=== PATIENT | male | born 1985 | race Caucasian/White ===

== ENCOUNTER 2016-07-27 21:49 | Emergency (ER) | payer MEDICAID ==
[2016-07-27 22:25] VITALS: BP 143/94
--- NOTE | 2016-07-27 22:55 | EDM.PDOC ---
ED HISTORY OF PRESENT ILLNESS - General Chief Complaint: Respiratory Problem Stated Complaint: UPPER RESPIRATORY Time Seen by Provider: 07/27/16 22:33 Source: Reports: Patient History Limitations: Reports: No limitations - History of Present Illness INITIAL COMMENTS - FREE TEXT/NARRATIVE: sinus infection;this is a 31 year old male present to ER with concerns of sinus infection, now going into to chest. similar to previous sinus infection. denies any fever, chills, nausea, vomiting or diarrhea. Timing/Duration: Reports: Day(s): Severity: moderate Location, General: Reports: head, chest Quality: Reports: Same as previous episode Improves with: Reports: None Worsens with: Reports: None Associated Symptoms: Reports: cough - Related Data Allergies/ADRs: Allergies Allergy/AdvReac Type Severity Reaction Status Date / Time No Known Allergies Allergy Verified 07/27/16 22:32 Home Meds: Home Meds NK [No Known Home Meds] 09/19/15 [History] Past Medical History - Past Health History Medical/Surgical History: Denies Medical/Surgical History Respiratory History: Reports: Asthma Neurological History: Reports: Head trauma Psychiatric History: Reports: Bipolar, Depression - Infectious Disease History Infectious Disease History: Reports: Chicken pox Social & Family History - Tobacco Use Smoking Status *Q: Never Smoker Years of Tobacco use: 15 Packs/Tins Daily: 1 Used Tobacco, but Quit: No Second Hand Smoke Exposure: Yes - Alcohol Use Days Per Week of Alcohol Use: 0 - Recreational Drug Use Recreational Drug Use: No Drug Use in Last 12 Months: Yes Recreational Drug Type: Reports: Marijuana/Hashish Recreational Drug Use Frequency: Daily ED ROS GENERAL - Review of Systems Review Of Systems: See Below Constitutional: Reports: fatigue HEENT: Reports: Nose pain, Sinus problem Respiratory: Reports: Cough Cardiovascular: Reports: No symptoms Endocrine: Reports: no symptoms GI/Abdominal: Reports: No symptoms Musculoskeletal: Reports: no symptoms Skin: Reports: no symptoms Neurological: Reports: No Symptoms Psychiatric: Reports: No symptoms Hematologic/Lymphatic: Reports: no symptoms Immunologic: Reports: no symptoms ED EXAM, GENERAL - Physical Exam Exam: See Below Exam Limited By: No limitations General Appearance: alert, WD/WN, no apparent distress Eye Exam: bilateral eye: normal inspection Ears: normal external exam, normal canal, other (tm with fluids, no redness, bony landmarks present) Ear Exam: bilateral ear: TM dull, TM bulging Nose: nasal tenderness, nasal drainage, other (frontal and maxillary pain and pressure is noted.) Throat/Mouth: Normal lips, Normal teeth, Normal gums, Normal voice, No airway compromise, Inflammation (tonsillar) Head: atraumatic, normocephalic, sinus tenderness Neck: normal inspection, supple, non-tender Respiratory/Chest: no respiratory distress, lungs clear, normal breath sounds, no accessory muscle use, chest non-tender, other (cough present) Cardiovascular: regular rate, rhythm, no edema, no murmur GI/Abdominal: normal bowel sounds, soft, non tender Back Exam: normal inspection, full range of motion Extremities: normal inspection, normal range of motion Neurological: alert, oriented, normal gait Psychiatric: normal affect, normal mood Skin Exam: Warm, Dry, Intact, Normal color, No rash Lymphatic: no adenopathy Course - Vital Signs Last Recorded V/S: Last Vital Signs Temp 35.4 C 07/27/16 22:32 Pulse 71 07/27/16 22:32 Resp 16 07/27/16 22:32 BP 143/94 H 07/27/16 22:32 Pulse Ox 99 07/27/16 22:32 Departure - Departure Time of Disposition: 23:08 Disposition: Home, Self-Care 01 Condition: good Clinical Impression: Cough Sinusitis Qualifiers: Sinusitis location: maxillary Chronicity: acute Recurrence: not specified as recurrent Qualified Code(s): J01.00 - Acute maxillary sinusitis, unspecified Instructions: Cough, Adult, [id number], Sinusitis, Adult Referrals: PCP,None [Primary Care Provider] - Forms: ED Department Discharge Care Plan Goals: sinusitis with cough -zithromax 2 tabs today, then 1 tab daily x 4 days -robitussin ac 10ml every 4 to6 hr as needed for cough -benadryl 25mg every 4 to 6 hours as needed for congestion discussed medications, rest, push fluids, return to clinic or er if not improved or symptoms worsen advised no work or school for 3 days or until well. - Problem List & Annotations (1) Cough SNOMED Code(s): 37046944 Code(s): R05 - COUGH Status: Acute Priority: High Current Visit: Yes (2) Sinusitis SNOMED Code(s): 28613569 Code(s): J32.9 - CHRONIC SINUSITIS, UNSPECIFIED Status: Acute Priority: High Current Visit: Yes Qualifiers: Sinusitis location: maxillary Chronicity: acute Recurrence: not specified as recurrent Qualified Code(s): J01.00 - Acute maxillary sinusitis, unspecified - Problem List Review Problem List Initiated/Reviewed/Updated: Yes - Assessment/Plan Plan: sinusitis with cough -zithromax 2 tabs today, then 1 tab daily x 4 days -robitussin ac 10ml every 4 to6 hr as needed for cough -benadryl 25mg every 4 to 6 hours as needed for congestion discussed medications, rest, push fluids, return to clinic or er if not improved or symptoms worsen advised no work or school for 3 days or until well.
== END 2016-07-27 23:00 | disposition home or self-care (01) ==
LOC: JP.ED 21:49
DX: J01.00 Acute maxillary sinusitis, unspecified (principal); R05 Cough
CPT/HCPCS: 99283

== ENCOUNTER 2019-08-07 21:08 | Emergency (ER) | payer BC, MEDICAID ==
[2019-08-07 21:25] VITALS: BP 131/74; PULSE 65
--- NOTE | 2019-08-07 21:40 | EDM.PDOC ---
ED HPI GENERAL MEDICAL PROBLEM - General Chief Complaint: General Stated Complaint: CHEST PAIN Time Seen by Provider: 08/07/19 21:15 Source of Information: Reports: Patient History Limitations: Reports: No Limitations - History of Present Illness INITIAL COMMENTS - FREE TEXT/NARRATIVE: 34-year-old male with an intermittent left anterior chest discomfort that sometimes radiates into his left arm as numbness and tingling, has been having symptoms for the last couple of months. Yesterday he was very active, lifting some heavy things and today he has been having this sensation intermittently that lasts 30 seconds to a minute. No shortness of breath, although he can feel some pressure pain with a deep breath. No cough or fever. No diaphoresis , nausea or vomiting. He is fairly sedentary right now, is a smoker and has a family history of cardiac disease. Onset: Unknown/Unsure (At least 2 months) Location: Reports: Chest, Upper Extremity, Left Improves with: Reports: None, Other (Really does not seem to be related to activity, he gets his symptoms at night sometimes while resting) Worsens with: Reports: Breathing Associated Symptoms: Reports: Chest Pain, Malaise. Denies: Cough, Diaphoresis, Nausea/Vomiting, Shortness of Breath, Weakness - Related Data Allergies Allergy/AdvReac Type Severity Reaction Status Date / Time No Known Allergies Allergy Verified 07/27/16 22:32 Home Meds: Home Meds NK [No Known Home Meds] 09/19/15 [History] Past Medical History - Past Health History Medical/Surgical History: Denies Medical/Surgical History Cardiovascular History: Reports: Heart Murmur Respiratory History: Reports: Asthma Neurological History: Reports: Head Trauma Psychiatric History: Reports: Bipolar, Depression - Infectious Disease History Infectious Disease History: Reports: Chicken Pox Social & Family History - Tobacco Use Smoking Status *Q: Heavy Tobacco Smoker Years of Tobacco use: 20 Packs/Tins Daily: 0.5 - Caffeine Use Caffeine Use: Reports: Coffee, Energy Drinks, Soda - Recreational Drug Use Recreational Drug Use: Yes Recreational Drug Type: Reports: Marijuana/Hashish ED ROS GENERAL - Review of Systems Review Of Systems: See Below Constitutional: Denies: Fever, Chills HEENT: Reports: No Symptoms, Other (Denies jaw pain or tooth pain) Respiratory: Reports: Pleuritic Chest Pain. Denies: Shortness of Breath, Wheezing, Cough Cardiovascular: Reports: Chest Pain GI/Abdominal: Denies: Abdominal Pain, Nausea, Vomiting Skin: Reports: No Symptoms Neurological: Denies: Headache Psychiatric: Reports: Anxiety ED EXAM, GENERAL - Physical Exam Exam: See Below Exam Limited By: No Limitations General Appearance: Alert, No Apparent Distress Eye Exam: Bilateral Eye: Normal Inspection Head: Atraumatic Respiratory/Chest: No Respiratory Distress, Lungs Clear Cardiovascular: Regular Rate, Rhythm. No: Extra Beats GI/Abdominal: Non-Tender Extremities: Normal Inspection Neurological: Alert, Oriented Psychiatric: Normal Affect, Normal Mood Skin Exam: Warm, Dry EKG INTERPRETATION Rhythm: NSR Course - Vital Signs Last Recorded V/S: Last Vital Signs Temp 97.0 F 08/07/19 21:23 Pulse 65 08/07/19 21:23 Resp BP 131/74 08/07/19 21:23 Pulse Ox - Orders/Labs/Meds Orders: Active Orders 24 hr Category Date Time Status EKG Documentation Completion [RC] ASDIRECTED Care 08/07/19 21:43 Active EKG 12 Lead [EK] Routine Ther 08/07/19 21:43 Ordered - Re-Assessments/Exams Free Text/Narrative Re-Assessment/Exam: 08/07/19 21:38 EKG was done which is completely normal. Patient's history is more typical for musculoskeletal or anxiety issues than it is cardiac. He is going to increase activity and try to get more active and in shape and if he develops persistent chest discomfort with activity especially if there is shortness of breath or radiation of pain into the jaw or shoulder for more than 10 to 15 minutes he is going to stop and return for reevaluation. Departure - Departure Time of Disposition: 21:48 Disposition: Home, Self-Care 01 Clinical Impression: Atypical chest pain - Discharge Information Instructions: Nonspecific Chest Pain, Adult, [id number] Referrals: PCP,None [Primary Care Provider] - Forms: ED Department Discharge Care Plan Goals: Increase activity as tolerated, return if chest pain or heaviness is recurrent with activity and lasts longer than 10 to 15 minutes. Especially if it is related to shortness of breath or sweating. Consider following up with a primary provider to schedule a stress test for reassurance. Return anytime to the emergency room if worsening or concerns. Sepsis Event Note - Evaluation Sepsis Screening Result: No Definite Risk - Focused Exam Vital Signs: Vital Signs Temp Pulse BP 08/07/19 21:23 97.0 F 65 131/74 Date Exam was Performed: 08/07/19 Time Exam was Performed: 23:05 - My Orders Last 24 Hours: My Active Orders 08/07/19 21:43 EKG Documentation Completion [RC] ASDIRECTED EKG 12 Lead [EK] Routine - Assessment/Plan Last 24 Hours: My Active Orders 08/07/19 21:43 EKG Documentation Completion [RC] ASDIRECTED EKG 12 Lead [EK] Routine
== END 2019-08-07 21:48 | disposition home or self-care (01) ==
LOC: JP.ED 21:08
DX: R07.89 Other chest pain (principal); J45.909 Unspecified asthma, uncomplicated; F31.9 Bipolar disorder, unspecified; F17.210 Nicotine dependence, cigarettes, uncomplicated
CPT/HCPCS: 93005; 99284-25

== ENCOUNTER 2022-09-05 23:36 | Emergency (ER) | payer BC, MEDICAID ==
[2022-09-06 01:34] LABS: BASOPHILS ABSOLUTE AUTO 0.04 K/uL (0.00-0.10); BASOPHILS PERCENT AUTO 0.4 % (0.1-1.3); EOSINOPHILS PERCENT AUTO 1.1 % (0.0-5.4); HEMATOCRIT 38.4 % (38.4-49.7); HEMOGLOBIN 13.8 g/dL (12.9-16.9); IMMATURE GRAN PERCENT AUTO 0.2 % (0.0-0.7); LYMPHOCYTES ABSOLUTE AUTO 1.55 K/uL (0.8-3.3); LYMPHOCYTES PERCENT AUTO 17.2 % (11.4-47.7); MEAN CORPUSCULAR HEMOGLOBIN 31.1 pg (31.6-35.5); MEAN CORPUSCULAR HGB CONC 35.9 g/dL (31.6-35.5); MEAN CORPUSCULAR VOLUME 86.5 fL (81.4-99.0); MONOCYTES ABSOLUTE AUTO 0.54 K/uL (0.20-0.90); NEUTROPHILS ABSOLUTE AUTO 6.77 K/uL (1.0-7.6); NEUTROPHILS PERCENT AUTO 75.1 % (40.0-78.1); PLATELET COUNT,PLT 255 K/uL (130-375); RED BLOOD CELL COUNT 4.44 M/uL (4.14-5.76)
[2022-09-06 01:38] LABS: IMMATURE GRAN ABSOLUTE AUTO 0.02 K/uL (0.00-0.23)
[2022-09-06] MEDS ORDERED: OLANZapine 5 MG Tab PO ONE (01:43)
[2022-09-06 01:55] LABS: A/G RATIO 1.2 (1.2-2.2); ALANINE AMINOTRANSFERASE,ALT 36 U/L (12-78); ALKALINE PHOSPHATASE 87 U/L (46-116); ANION GAP 11.1 mmol/L (5.0-14.0); ASPARTATE AMNIOTRANSFERASE,AST 42 U/L (15-37); BILIRUBIN TOTAL 1.1 mg/dL (0.2-1.0); BLOOD UREA NITROGEN,BUN 20 mg/dL (7-18); CALCIUM 8.7 mg/dL (8.5-10.1); CARBON DIOXIDE,CO2 26 mmol/L (21-32); CHLORIDE,CL 103 mmol/L (100-108); CREATININE 0.8 mg/dL (0.8-1.3); EST CRCL DRUG DOSING (CG) 127.26 mL/min; ESTIMATED GFR 115 mL/min (>60); GLUCOSE RANDOM 92 mg/dL (74-106); POTASSIUM,K 3.7 mmol/L (3.6-5.2); PROTEIN TOTAL,TP 7.4 g/dL (6.4-8.2); SODIUM,NA 140 mmol/L (140-148)
[2022-09-06 02:54] LABS: AMPHETAMINES SCREEN, URINE NEGATIVE (NEGATIVE); BARBITURATE SCREEN,URINE NEGATIVE (NEGATIVE); BENZODIAZEPINES SCREEN,URINE NEGATIVE (NEGATIVE); METHADONE SCREEN, URINE NEGATIVE (NEGATIVE); METHAMPHETAMINES SCREEN, URINE NEGATIVE (NEGATIVE); OXYCODONE SCREEN,URINE NEGATIVE (NEGATIVE); PROPOXYPHENE SCREEN,URINE NEGATIVE (NEGATIVE); THC SCREEN,URINE 50 NG/ML NEGATIVE (NEGATIVE)
[2022-09-06 09:34] VITALS: BP 127/70; PULSE 57
== END 2022-09-06 09:54 ==
LOC: JP.ED 23:36
DX: R45.851 Suicidal ideations (principal); J45.909 Unspecified asthma, uncomplicated; F17.210 Nicotine dependence, cigarettes, uncomplicated; Z20.822 Contact with and (suspected) exposure to COVID-19
CPT/HCPCS: 36415; 80053; 80305-QW; 80307; 84443; 85025; 99285; U0002